=== PATIENT | female | born 1975 | race Two or more races ===

== ENCOUNTER 2025-03-13 20:39 | Emergency (ER) | payer OTHER ==
[~2025-03-13] VITALS: Ht 157.5 cm; Wt 72.6 kg
[2025-03-13] MEDS ORDERED: OMEPRAZOLE20 M2 (20:59)
[2025-03-13] MEDS ORDERED: PROTONIX40 MG (20:59)
[2025-03-13 21:00] VITALS: BP 137/85; O2SAT 99
[2025-03-14] MEDS ORDERED: ORPHENADRINE CITRATE 30 MG/ML AMPUL IM STA (00:52)
[2025-03-14] MEDS ORDERED: TRIAMCINOLONE ACETONIDE 40 MG/ML VIAL IM STA (00:52)
[2025-03-14] MEDS ORDERED: ORPHENADRINE CITRATE 30 MG/ML AMPUL ONE (00:58)
[2025-03-14] MEDS ORDERED: TRIAMCINOLONE ACETONIDE 40 MG/ML VIAL ONE (00:58)
[2025-03-14] MEDS ORDERED: DOLOGESIC-DF 51 EACH PO (02:26)
== END 2025-03-14 02:30 ==
LOC: ER 20:40
DX: R07.89 Other chest pain (principal); M54.50 Low back pain, unspecified; Z88.5 Allergy status to narcotic agent; Z88.6 Allergy status to analgesic agent